=== PATIENT | female | born 1945 | race Caucasian/White ===

== ENCOUNTER → 2018-10-11 | Day surgery (SDC) | payer MEDICARE ==
--- NOTE | 2018-09-21 05:01 | Pre Op History & Physical ---
DATE OF SURGERY: 09/20/2018 CHIEF COMPLAINT: Chronic sinusitis, nasal obstruction. HISTORY OF PRESENT ILLNESS: This 73 years old female has history of nasal obstruction, postnasal discharge from her nose. The patient has no headaches, but does have facial pain. The patient has a persistent sinus problem since May of 2018. This decreased sense of smell. Her condition has been treated with multiple antibiotics including 6-8 weeks of antibiotics including Ceftin and topical nasal steroid with no improvement of the condition. CT scan of paranasal sinuses done before surgery showed the patient has chronic sinusitis, involvement of the ethmoid sinuses, frontal sinus involvement, and maxillary sinus involvement. Deviated nasal septum on the right side was noted. REVIEW OF SYSTEMS: Showed no recent cardiovascular, respiratory, or GI problem. PAST MEDICAL HISTORY: The patient has history of atrial fibrillation with pacemaker insertion. PAST SURGICAL HISTORY: The patient has bilateral knee replacements and eye surgery. ALLERGIES: SHE HAS NO KNOWN ALLERGIES TO MEDICATION. MEDICATIONS: She is on Atrovent, Combivent, Anoro Ellipta, Ventolin, vitamin D, Travatan, omeprazole, sertraline, Xarelto, and amiodarone. SOCIAL HISTORY: The patient stopped smoking about 20 years ago. He is a nondrinker. FAMILY HISTORY: Noncontributory. PHYSICAL EXAMINATION: VITAL SIGNS: On examination, the patient's vital signs were within normal limits. HEENT: Ear exam showed normal tympanic membrane bilaterally. Nasal exam showed hypertrophy of the inferior turbinates. Oropharynx and oral cavity show no obvious abnormality. NECK: Showed no lymph node or thyroid palpable. CHEST: Showed good air entry bilaterally. CARDIOVASCULAR: Showed S1, S2. No murmur noted. DIGITAL INTERN: Showed cranial nerves II through XII were within normal limits. ASSESSMENT: Migel has chronic sinusitis, nasal obstruction which has been resistant to conservative therapy. The patient had a sinuplasty in January 2017, had some relief, but the problem recurred over the past year. The suggested treatment is endoscopic sinus surgery, septoplasty, resection of inferior turbinate, and other necessary procedure. Complication of procedure includes but not limited to bleeding, infection, CSF leak, blindness, double vision, meningitis, septal perforation, septal hematoma, persistent nasal obstruction, persistent nasal crusting, nasal deformity, recurrence of the sinus problem. The alternative will be continue observation, continue antibiotic therapy, topical nasal steroid therapy, systemic steroid therapy, decongestant. The patient has obtained cardiac clearance from Dr. Nielsen. She has been advised to stop her Xarelto at least 5-7 days before surgery and she is advised to stop all other anticoagulants. The patient has elected to undergo surgical procedure. MD ECHO Winston/JAIME /[id number]
--- NOTE | 2018-10-09 23:13 | Pre Op History & Physical ---
DATE OF SURGERY: October 11, 2018. CHIEF COMPLAINT: Chronic sinusitis, nasal obstruction. HISTORY OF PRESENT ILLNESS: This 73-year-old female has a history of nasal obstruction, postnasal drip, and discharge from her nose. Her condition has been worsen since May 2018. The patient has been treated with multiple antibiotics including Ceftin multiple times by myself and systemic steroid with no improvement of the condition. The patient has postnasal drip, aggravating her pulmonary condition, facial pain, and nasal obstruction. CT scan of paranasal sinuses done before surgery showed the patient has frontal sinus involvement, ethmoid sinus involvement, maxillary sinus involvement, and deviated nasal septum to the right side. REVIEW OF SYSTEMS: System review showed no recent cardiovascular, respiratory, or GI problem. PAST MEDICAL HISTORY: The patient has history of atrial fibrillation and coronary artery disease. PAST SURGICAL HISTORY: The patient has previous pacemaker insertion, bilateral knee replacement, multiple leg surgery, bilateral eye surgery, basal cell carcinoma removed from her nose, tonsillectomy, and endoscopic sinus surgery in 2000. The patient also had a sinuplasty in January 2017. SOCIAL HISTORY: The patient stopped smoking about 20 years ago. She is a nondrinker. ALLERGIES: THE PATIENT IS ALLERGIC TO NO MEDICATION. MEDICATIONS: She is on Atrovent, Combivent inhaler, Anoro Ellipta, Ventolin, vitamin D, Travatan, Omeprazole, Sertraline, Xarelto, and amiodarone. FAMILY HISTORY: Noncontributory. PHYSICAL EXAMINATION: VITAL SIGNS: On examination, the patient's vital signs were within normal limits. HEENT: Ear exam showed normal tympanic membrane bilaterally. Nasal exam showed hypertrophy of the inferior turbinates. Oropharynx and oral cavity show no obvious abnormality. NECK: No lymph node or thyroid palpable. CHEST: Showed good air entry bilaterally. CARDIOVASCULAR: Showed S1, S2. No murmur noted. TRADEMARK PARALEGAL: Showed cranial nerves II through XII were within normal limits. ASSESSMENT AND PLAN: Ms. Wang has chronic sinusitis and nasal obstruction, which has been resistant to conservative therapy. The suggested treatment is endoscopic sinus surgery, septoplasty, resection of inferior turbinate, and other necessary procedure. Complication of procedure includes, but not limited to bleeding, infection, CSF leak, blindness, double vision, meningitis, septal perforation, septal hematoma, persistent nasal obstruction, persistent nasal crusting, nasal deformity, recurrence of the sinus problem. The patient has been coughing few days prior to preop. She had a chest x-ray, which did not show any acute pulmonary problem. The patient has been advised to stop her Xarelto at least 5-7 days before the surgery. The patient has obtained the cardiac clearance from Dr. Nielsen. The patient has elected to undergo surgical procedure. MD ECHO Winston/JAIME /[id number]
[~2018-10-11] MED LIST: ACETAMINOPHEN 1000 MG/100 ML 100 ML IV ONE; DEXAMETHASONE SOD PHOS 10 MG/1 ML VIAL ONE; DEXAMETHASONE SOD PHOS INJ 4 MG/ML VIAL ONE; EPINEPHRINE HCL 1:1000 1ML 1 MG/ML AMP ONE; FENTANYL CITRATE/PF 100MCG/2 ML INJ ONE; FERROUS SULFAT325 MG PO; FLECAINIDE ACE100 MG PO; LIDOCAINE 1% W/EPINEPHRINE 20 ML VIAL ONE; LIDOCAINE HCL (LTA) 4 ML SOLN ONE; LIDOCAINE HCL 2% LOCAL INJ 5 ML SDV VIAL INJ ONE; MEPERIDINE HCL INJ 25 MG/ML VIAL ONE; OMEPRAZOLE40 MG PO; ONDANSETRON HCL INJ 2MG/ML 2ML 2 MG/ML VIAL ONE; PROPOFOL IV EMULSION 10 MG/ML 20 ML VIAL ONE; ROCURONIUM BROMIDE 10 MG/ML 5ML VIAL ONE; SERTRALINE HCL100 MG PO; SEVOFLURANE INHAL SOLN 250 ML PEN BTL ONE; TIZANIDINE HCL2 MG PO; TRAVATAN Z5 ML OP; TRELEGY IH; VITAMIN D1000 UNI1 PO; XARELTO20 MG PO
[2018-10-11 09:51] LABS: BASOPHILS # (AUTO) 0.1 (0.0-0.1); BASOPHILS % 1.6 % (0.0-1.0); EOSINOPHILS # (AUTO) 0.1 (0.0-0.4); EOSINOPHILS % 1.6 % (0.0-6.0); HEMATOCRIT 37.4 % (34.2-44.1); HEMOGLOBIN 11.5 g/dL (12.0-16.0); LYMPHOCYTES # (AUTO) 1.5 (1.0-3.2); LYMPHOCYTES % 24.6 % (18.0-39.1); MEAN CORPUSCULAR HGB CONC 30.7 g/dL (31-35); MEAN CORPUSCULAR VOLUME 87.8 fL (81-99); MONOCYTES # (AUTO) 0.6 (0.2-0.8); MONOCYTES % 9.3 % (4.4-11.3); NEUTROPHILS # (AUTO) 3.9 (2.1-6.9); NEUTROPHILS % 62.3 % (38.7-80.0); PLATELET COUNT 165 x10e3/uL (140-360); RED BLOOD COUNT 4.26 x10e6/uL (3.6-5.1); RED CELL DISTRIBUTION WIDTH 16.8 % (11.7-14.4)
--- NOTE | 2018-10-11 11:20 | Diagnostic Imaging Report ---
EXAMINATION: PA and lateral views of the chest. COMPARISON: None CLINICAL HISTORY: Preop for rhinoplasty DISCUSSION: Lines/tubes: Left upper chest dual lead cardiac device, with the tips projecting in the right atrium and right ventricle. Lungs: The lungs are well inflated and clear. There is no evidence of pneumonia or pulmonary edema. Pleura: There is no pleural effusion or pneumothorax. Eventration of the right hemidiaphragm. Heart and mediastinum: Enlarged cardiac silhouette. Pulmonary vasculature is normal. Bones and soft tissues: No acute bony abnormalities. Age-appropriate degenerative changes in the thoracic spine IMPRESSION: Enlarged cardiac silhouette, without acute cardiopulmonary abnormalities. Signed by: Dr. Issa Gonzalez M.D. on 10/11/2018 11:17 AM
[2018-10-11 12:20] VITALS: BP 143/75
--- NOTE | 2018-10-11 18:09 | Operative Report ---
DATE OF PROCEDURE: 10/11/2018 SURGEON: Moshe Goel MD CHIEF COMPLAINT: Chronic sinusitis, nasal obstruction. POSTOPERATIVE DIAGNOSIS: Chronic sinusitis, nasal obstruction. OPERATIVE PROCEDURES: Bilateral anterior and posterior ethmoidectomy, bilateral maxillary sinus antrostomy, bilateral resection of inflamed tissue and maxillary antrum, bilateral sphenoidectomy. ANESTHESIA: Anesthesiology group. INDICATIONS: This 73-year-old female, who has history of nasal obstruction, postnasal drip, discharge from her nose. She has been treated with more than eight weeks of antibiotics over the past few months with topical nasal steroid, decongestant with no improvement. On examination, she was noted to have hypertrophy of inferior turbinate. The patient had endoscopic sinus surgery more than 10 years ago and a sinuplasty a few years ago. Over the past 6 to 9 months the problem recurred. CT scan of paranasal sinuses done before surgery showed the patient has chronic sinusitis. It was decided that endoscopic sinus surgery and other necessary procedure will be beneficial for her. DESCRIPTION OF PROCEDURE: The patient was taken to the operating room, put under general anesthesia, endotracheally intubated. Nose was injected with 1% Xylocaine with 1:100,000 epinephrine for hemostasis. Epinephrine-soaked pledget was inserted into the nose. These were subsequently removed. Left paranasal sinuses were approached first. Middle turbinate was medialized. The inflamed tissue was noted both anterior and posterior in ethmoid sinus area. This was dissected using the microshaver. Care was taken during dissection to ascertain, although it was not entered. The sphenoid sinus was entered through the natural ostium and natural ostium was enlarged using a microshaver. Inflamed tissue in the sphenoid sinus was dissected using a microshaver. The maxillary antrum was examined using a 45 degree telescope. Any inflamed tissue was dissected using the microshaver. The right paranasal sinuses were approached. The middle turbinate was medialized. Again, inflamed tissue was noted in both the anterior and posterior ethmoid sinus area. This was dissected systematically using the microshaver. Care was taken during dissection to ascertain, although it was not entered. The sphenoid sinus was entered through the natural ostium. The natural ostium was enlarged using a microshaver. Inflamed tissue in the sphenoid sinus was dissected using a microshaver. The maxillary antrum was examined using a 45 degree telescope. Any inflamed tissue was dissected using the microshaver. The nasopharynx and nasal cavity were re-examined. No other abnormality was noted. A nasal port was inserted in sinus cavities on either side. This was done to prevent synechiae formation and for hemostasis. The patient tolerated the above procedure well with estimated blood loss about 20 mL. She was given 20 mg of Decadron intraoperatively. The patient was able to be transferred to recovery room in stable condition. MD ECHO Winston/MODL /[id number]
== END | disposition home or self-care (01) ==
LOC: OR 08:52
PROVIDERS: ATTEND Otolaryngology Otolaryngology/Facial Plastic Surgery
DX: J32.0 Chronic maxillary sinusitis (principal); J34.89 Other specified disorders of nose and nasal sinuses; F41.9 Anxiety disorder, unspecified; J44.9 Chronic obstructive pulmonary disease, unspecified; J32.9 Chronic sinusitis, unspecified; K21.9 Gastro-esophageal reflux disease without esophagitis; I25.10 Atherosclerotic heart disease of native coronary artery without angina pectoris; Z95.0 Presence of cardiac pacemaker; I48.91 Unspecified atrial fibrillation; Z01.810 Encounter for preprocedural cardiovascular examination; Z01.812 Encounter for preprocedural laboratory examination; Z01.811 Encounter for preprocedural respiratory examination
CPT/HCPCS: 31051; 31255; 31267; 36415; 71046; 85025; 88304; 93005; J0131; J0171; J1100; J2001; J2175; J2405; J2704; J3010